=== PATIENT | female | born 1960 | race Caucasian/White ===

== ENCOUNTER → 2019-10-11 | Outpatient (CLI) | payer OTHER ==
--- NOTE | 2019-10-11 12:01 | ECHOF ---
Referral Reason:R00.1 Bradycardia MEASUREMENTS -------- HEIGHT: 160.0 cm WEIGHT: 88.5 kg BP: 122/76 IVSd: 0.8 cm (0.6 - 1.1) LVIDd: 3.8 cm (3.9 - 5.3) LVPWd: 0.9 cm (0.6 - 1.1) IVSs: 1.3 cm LVIDs: 2.2 cm LVPWs: 1.3 cm LA Diam: 2.9 cm (2.7 - 3.8) RVIDd: 2.8 cm (< 3.3) Ao Diam: 2.5 cm (2.0 - 3.7) AV Cusp: 2.0 cm (1.5 - 2.6) EPSS: 0.4 cm MV E Trav: 0.54 m/s MV DecT: 243 ms MV A Trav: 0.62 m/s MV E/A Ratio: 0.88 RAP: 5.00 mmHg RVSP: 27.65 mmHg MV EF SLOPE: 59.47 mm/s (70 - 150) MV EXCURSION: 14.58 mm (> 18.000) TAPSE: 19.18 mm FINDINGS -------- Sinus rhythm. This was a technically good study. The left ventricular size is normal. Left ventricular wall thickness is normal. Overall left vent ricular systolic function is normal with, an EF between 60 - 65 %. The diastolic filling pattern is normal for the age of the patient 5.61. The right ventricle is normal in size. Normal LA size by volume 22+/-6 ml/m2. The right atrium is normal in size. Aneurysmal Interatrial septum. The aortic valve is trileaflet and appears structurally normal. The mitral valve is normal. Mild tricuspid regurgitation present. Right ventricular systolic pressure is normal at < 35 mmHg. Trace/mild (physiologic) pulmonic regurgitation. The aortic root size is normal. Normal inferior vena cava with normal inspiratory collapse consistent with estimated right atrial pre ssure of 5 mmHg. There is no pericardial effusion. CONCLUSIONS -------- 1. Sinus rhythm. 2. This was a technically good study. 3. The left ventricular size is normal. 4. Left ventricular wall thickness is normal. 5. Overall left ventricular systolic function is normal with, an EF between 60 - 65 %. 6. The diastolic filling pattern is normal for the age of the patient 5.61 7. The right ventricle is normal in size. 8. Normal LA size by volume 22+/-6 ml/m2. 9. The right atrium is normal in size. 10. Aneurysmal Interatrial septum. 11. The aortic valve is trileaflet and appears structurally normal. 12. The mitral valve is normal. 13. Mild tricuspid regurgitation present. 14. Right ventricular systolic pressure is normal at < 35 mmHg. 15. Trace/mild (physiologic) pulmonic regurgitation. 16. The aortic root size is normal. 17. Normal inferior vena cava with normal inspiratory collapse consistent with estimated right atrial pressure of 5 mmHg. 18. There is no pericardial effusion. TICKETING CLERK: Radha Crawford RDCS
--- NOTE | 2019-10-11 12:29 | EST ---
EXERCISE STRESS AGE: 59 SEX: F HT: 5'3" WT: 195 PROTOCOL: Chacorta Stress Test STAGE: 2 DURATION OF EXERCISE: 4:46 HEART RATE REST: 75 BLOOD PRESSURE REST: 122/76 MAXIMUM HEART RATE ACHIEVED: 158 MAXIMUM BLOOD PRESSURE: 182/75 85% MPHR: 139 100% MPHR: 163 METS: 6.6 INDICATIONS: Chest pain, bradycardia. CLINICAL INFORMATION: Jessica Denson was referred by Dr. Inocencio Murillo for an exercise stress test. Baseline heart rate 75 beats per minute. Baseline blood pressure 122/76 mmHg. Baseline 12-lead ECG shows sinus rhythm with normal cardiac intervals. Patient exercised on a Chacorta protocol for only 4 minutes 46 seconds, achieving a peak heart rate of 158 beats per minute. Normal blood pressure response to exercise. There was no clear-cut evidence for ischemia. No arrhythmias noted. IMPRESSION: No ECG or echocardiographic evidence for ischemia. No arrhythmias noted. Low exercise capacity. MMODL / IJN: [id number] /
== END | disposition home or self-care (01) ==
LOC: RADNMMAIN 08:44
PROVIDERS: ATTEND Family Medicine
DX: I07.1 Rheumatic tricuspid insufficiency (principal); I37.1 Nonrheumatic pulmonary valve insufficiency; R00.1 Bradycardia, unspecified
CPT/HCPCS: 93017; 93306

== ENCOUNTER 2020-02-03 09:56 | Day surgery (SDC) | payer OTHER ==
[2020-02-01 16:46] VITALS: BMI 34.5
[~2020-02-03 09:56] MED LIST: DEXAMETHASONE SOD PHOSPHATE 10 MG/ML 1 ML VIAL IV ONE; LACTATED RINGERS 1,000 ML IV SCH; LIDOCAINE 1% (10MG/ML) FOR IV START INTRADERMA PRN; MIDAZOLAM 2 MG/2 ML VIAL IV PRN; Pre Op ABX Message 1 EACH MISC MISCELLANE ONE; fentaNYL (PF) 50 MCG/ML 2 ML AMP IV PRN
[2020-02-03 10:37] VITALS: TEMP 97.1
[2020-02-03] MEDS ORDERED: ONDANSETRON 4 MG/2 ML VIAL IVP ONE (10:43)
[2020-02-03] MEDS ORDERED: MIDAZOLAM 2 MG/2 ML VIAL IV ONE (11:01)
[2020-02-03] MEDS ORDERED: MIDAZOLAM 2 MG/2 ML VIAL ONE (11:14)
[2020-02-03] MEDS ORDERED: SUCCINYLCHOLINE CHLORIDE 100 MG/5 ML SYR IV ONE (11:14)
[2020-02-03] MEDS ORDERED: PROPOFOL 10 MG/ML 20 ML VIAL IV ONE (11:14)
[2020-02-03] MEDS ORDERED: KETOROLAC 30 MG/ML 1 ML VIAL ONE (11:14)
[2020-02-03] MEDS ORDERED: LIDOCAINE 1% INJ 10MG/ML (20 ML MDV) ONE (11:14)
[2020-02-03] MEDS ORDERED: ceFAZolin 1,000 MG VIAL ONE (11:14)
[2020-02-03] MEDS ORDERED: fentaNYL (PF) 50 MCG/ML 2 ML AMP ONE (11:14)
[2020-02-03] MEDS ORDERED: SODIUM CHLORIDE 0.9% 100 ML with ceFAZolin 2,000 MG IV ONE ×2 (11:18)
[2020-02-03] MEDS ORDERED: BUPIVACAINE (PF) 0.25% 30 ML VIAL SQ ONE ×2 (11:53)
[2020-02-03] MEDS ORDERED: LIDOCAINE 1%-EPI 1:100,000 20 ML VIAL SQ ONE ×2 (11:53)
--- NOTE | 2020-02-03 13:01 | P.OP ---
Date of Procedure: 02/03/20 Preoperative Diagnosis: Sebaceous cyst 3 Postoperative Diagnosis: Same Anesthesia: GETA Surgeon: Jose Alonso Estimated Blood Loss (ml): 5 Condition: stable Disposition: PACU Description of Procedure: Patient brought operative suite and underwent general endotracheal anesthesia per Department of anesthesia she was then placed in the prone position timeout performed correct patient correct procedure correct site was verified patient was prepped and draped usual sterile fashion. There was 2 cyst on her posterior scalp and one on her mid back. Local anesthetic disease and assess skin and subcutaneous tissues around all 3 cysts. Elliptical incision was made around the first cyst on the right posterior scalp approximately 2 cm x 1 cm the cyst was excised hemostasis was achieved the cyst on her left scalp was approached a similar 2 cm x 1 cm elliptical incision was made and the cyst was excised. The cyst on her mid back was then approached a 4 cm x 2 cm elliptical incision was made and the cyst was excised completely. Skin flaps were raised. Hemostasis was achieved. This wound was closed with 30 subdermal Vicryl followed by 2-0 nylon interrupted vertical mattress sutures. The 2 wounds on her scalp were closed with 4-0 simple interrupted nylon stitches. Sterile dressings were applied patient artery procedure well no apparent complications Plan - Discharge Summary Discharge Rx Participant: No New Discharge Prescriptions: New HYDROcodone/APAP 5-325MG [[place] 5-325] 1 tab PO Q6HR PRN 3 Days #5 tab PRN Reason: Pain No Action Lisinopril [Zestril] 5 mg PO DAILY Hydrochlorothiazide [Hydrodiuril] 25 mg PO DAILY Cholecalciferol [Vitamin D3 (25 Mcg = 1000 Iu)] 5,000 unit PO DAILY Discharge Medication List Cholecalciferol [Vitamin D3 (25 Mcg = 1000 Iu)] 5,000 unit PO DAILY 02/01/20 [History] Hydrochlorothiazide [Hydrodiuril] 25 mg PO DAILY 02/01/20 [History] Lisinopril [Zestril] 5 mg PO DAILY 02/01/20 [History] HYDROcodone/APAP 5-325MG [[place] 5-325] 1 tab PO Q6HR PRN 3 Days #5 tab 02/03/20 [Rx] Follow up Appointment(s)/Referral(s): Jose Alonso, [Doctor of Osteopathic Medicine] - 2 Weeks Activity/Diet/Wound Care/Special Instructions: Dressing can come off tomorrow, patient may shower tomorrow, no baths or swimming for 3 weeks Discharge Disposition: HOME SELF-CARE
[2020-02-03 14:15] VITALS: BP 109/75; PULSE 72; RESP 18
== END 2020-02-03 14:24 | disposition home or self-care (01) ==
LOC: OR 09:56
PROVIDERS: ATTEND Student in an Organized Health Care Education/Training Program
DX: L72.11 Pilar cyst (principal); L72.0 Epidermal cyst; I10 Essential (primary) hypertension; E78.5 Hyperlipidemia, unspecified; K21.9 Gastro-esophageal reflux disease without esophagitis; Z79.899 Other long term (current) drug therapy; Z90.49 Acquired absence of other specified parts of digestive tract; Z80.1 Family history of malignant neoplasm of trachea, bronchus and lung
CPT/HCPCS: 88304; 11422 ×2; 11404; J2250; J1100; J2405; J0690; J2001; J3010; J1885; J0330; J2704

== ENCOUNTER → 2024-01-09 | Outpatient (CLI) | payer OTHER ==
--- NOTE | 2024-01-09 14:01 | BD ---
EXAMINATION TYPE: Axial Bone Density DATE OF EXAM: 01/09/2024 CLINICAL HISTORY: 63 years old Female. ICD-10 CODE: M85.88 OTH DISRD OF BONE DENSITY AND STRUCTURE, OT Height: 62.7 Weight: 199 FRAX RISK QUESTIONS: 3. Menopause before 45: no, at age 57 RISK FACTORS nothing to note here. HISTORY OF: nothing to note here. MEDICATIONS: vit d, EXAM MEASUREMENTS: Bone mineral densitometry was performed using the [employer] System. Bone mineral density as measured about the Lumbar spine is: ----- L1-L4(G/cm2): 1.367 T Score Values are as follows: ----- L1: -0.1 ----- L2: 1.3 ----- L3: 1.6 ----- L4: 2.8 ----- L1-L4: 1.6 Z Score Values are as follows: ----- L1: 0.4 ----- L2: 1.8 ----- L3: 2.1 ----- L4: 3.3 ----- L1-L4: 2.0 Bone mineral density is the first dexa scan at [facility]. Bone mineral density about the R hip (g/cm2): 0.842 Bone mineral density about the L hip (g/cm2): 0.810 T Score values are as follows: -----R Neck: -1.4 -----L Neck: -1.6 -----R Total: -0.4 -----L Total: -0.2 Z Score values are as follows: -----R Neck: -0.6 -----L Neck: -0.9 -----R Total: 0.0 -----L Total: 0.2 Bone mineral density first bone density study at [facility] FRAX%s: The graph provided illustrates a 8.2% chance for a major osteoporotic fx and a 0.8% chance fo r the hips probability for fx in 10 years time. IMPRESSION: Normal (Values between +1 and -1 indicate normal bone mass). Consider repeating this study in 5 year s or sooner if there is some new clinical indication. NOTE: T-SCORE=SD OF THE YOUNG ADULT MEAN.
== END | disposition home or self-care (01) ==
LOC: RADBDWWP 09:51
PROVIDERS: ATTEND Obstetrics & Gynecology
DX: M85.89 Other specified disorders of bone density and structure, multiple sites (principal); M85.80 Other specified disorders of bone density and structure, unspecified site; Z78.0 Asymptomatic menopausal state
CPT/HCPCS: 77080